=== PATIENT | male | born 1950 | race Hispanic/Latino ===

== ENCOUNTER → 2018-06-15 | Day surgery (SDC) | payer MEDICARE ==
[2018-06-04 10:16] LABS: BASOPHILS % 0.2 % (0.0-1.0); EOSINOPHILS # (AUTO) 0.8 (0.0-0.4); EOSINOPHILS % 8.6 % (0.0-6.0); HEMOGLOBIN 13.2 g/dL (14.0-18.0); LYMPHOCYTES # (AUTO) 1.9 (1.0-3.2); LYMPHOCYTES % 21.1 % (18.0-39.1); MEAN CORPUSCULAR HEMOGLOBIN 29.9 pg (28-32); MEAN CORPUSCULAR VOLUME 90.7 fL (81-99); MONOCYTES # (AUTO) 0.8 (0.2-0.8); MONOCYTES % 9.2 % (4.4-11.3); NEUTROPHILS # (AUTO) 5.3 (2.1-6.9); NEUTROPHILS % 60.4 % (38.7-80.0); PLATELET COUNT 248 x10e3/uL (140-360); RED BLOOD COUNT 4.41 x10e6/uL (4.3-5.7); RED CELL DISTRIBUTION WIDTH 13.3 % (11.7-14.4)
[~2018-06-15] MED LIST: ACTOPLUS MET 11 EAC1 PO; AMARYL2 MG PO; ASPIRIN81 MG PO; ATORVASTATIN CA80 MG PO; CALCIUM MAG ZINC; CEPHALEXIN500 MG PO; FENTANYL CITRATE/PF 100MCG/2 ML INJ ONE; HYDROCHLOROTH12.5 MG PO; HYOSCYAMINE SULFATE 0.5 MG/ML INJ ONE; KETAMINE HCL INJ 50 MG/ML 10 ML VIAL ONE; LEVOTHYROXINE125 MCG PO; LIPITOR10 MG PO; LISINOPRIL10 MG PO; MAGNESIUM250 MG PO; MEGA MEN PO; MELOXICAM7.5 MG PO; METFORMIN HCL500 MG PO; MIDAZOLAM HCL 2 MG/2 ML VIAL ONE; MONTELUKAST SOD10 MG PO; NAPROXEN250 MG PO; NORVASC5 MG PO; PANTOPRAZOLE SO40 MG PO; PIOGLITAZONE HC45 MG PO; PROPOFOL IV EMULSION 10 MG/ML 50 ML VIAL ONE; SODIUM BICARBO650 MG PO; VICTOZA 2-0.6 MG/0.1 SQ; VIT B12 PO; VITAMIN D35000 UNI1 PO
[2018-06-15 13:07] VITALS: BP 122/74
--- NOTE | 2018-06-15 13:55 | Operative Report ---
DATE OF PROCEDURE: June 15, 2018 REFERRING PHYSICIAN: Dr. Yehuda Rushing. PROCEDURES PERFORMED 1. Esophagogastroduodenoscopy with biopsies and esophageal dilatation. 2. Colonoscopy. INDICATIONS FOR EGD: Dysphagia to solids. INDICATIONS FOR COLONOSCOPY: Surveillance colonoscopy, personal history of colon polyps. MEDICATION: Patient was done under MAC. Please see anesthesiologist's note. PROCEDURE: With patient in left lateral decubitus position, a flexible fiberoptic Olympus gastroscope was introduced into the esophagus under direct visualization without any difficulty. There was a minute tongue of velvety red mucosa noted to extend proximally from the GE junction that was biopsied to rule out Aparicio's. Esophagus was then dilated to size 52-Upper Sorbian Rae. The scope was then advanced with ease into the stomach traversing a small sliding hiatal hernia. Mucosa overlying the antrum and the body revealed some patchy erythema and low-grade edema and biopsies were obtained and sent to stain for H. pylori. The pylorus was of normal contour and shape and was intubated with ease and the scope was advanced all the way to the 2nd portion of the duodenum. The mucosa overlying the proximal 2nd portion and the duodenal bulb appeared to be within normal limits. The scope was then withdrawn back into the stomach and retroflexed, and mucosa overlying the fundus and the cardia appeared to be within normal limits. The scope was then straightened out and was subsequently withdrawn. Patient tolerated the procedure well. IMPRESSION 1. Rule out Aparicio's esophagus. 2. Esophagus dilated to size 52-Upper Sorbian Rae. 3. Small sliding hiatal hernia. 4. Gastritis, biopsied. Biopsies sent to stain for Helicobacter pylori. 5. Previously described multiple duodenal ulcers on previous esophagogastroduodenoscopy appeared to have resolved. PLAN: Follow up histology. Continue Protonix 40 mg 1 p.o. q.a.m. a.c. Patient was then turned around and after adequate lubrication of the anal canal, a flexible fiberoptic Olympus colonoscope was inserted into the rectum with ease and advanced all the way to the cecum. Prep was fair, but somewhat suboptimal with some retained stools in the colon. Other than for andino diverticulosis, the colon grossly appeared to be within normal limits. The scope was then retroflexed into the distal rectum and small internal hemorrhoids were noted, none of which was actively bleeding. The scope was then straightened out and was subsequently withdrawn. Patient tolerated the procedure well. IMPRESSION 1. Andino diverticulosis. 2. Suboptimal prep. 3. Internal hemorrhoids, none actively bleeding. PLAN: Initiate high-fiber low-fat diet. Initiate high-fiber supplement. Patient might benefit from a followup colonoscopy in 3 to 5 years. Job#: [id number] AKU cc:YEHUDA RUSHING MD
--- OUTSIDE RECORDS SUMMARY | 2018-06-17 10:54 | XMS REPORT | Continuity of Care Document ---
Author Author [facility] Interface Address Unknown Phone Unavailable Problems Problem Status Onset Date Classification Date Reported Comments Source M25.561 Active 06/02/2016 [facility] Medications Medication Details Route Status Patient Instructions Ordering Provider Order Date Source Allergies, Adverse Reactions, Alerts Substance Category Reaction Severity Reaction type Status Date Reported Comments Source Immunizations Immunization Date Given Site Status Last Updated Comments Source Results Order Name Results Value Reference Range Date Interpretation Comments Source Knee 3 Views Bilateral DX Knee 3 Views Bilateral DX Bilateral knees 3 views: The bone density is decreased. There is narrowing of the medial tibiofemoral compartments of both knees, with sclerosis of the articular surfaces of the right knee. The other joint spaces appear normal in width with smooth articular surfaces. Chondrocalcinosis of the menisci is noted. The soft tissues are otherwise unremarkable. IMPRESSION: Degenerative changes without acute radiographic abnormalities of the knees. [id number] 06/02/2016 - - Read by: Jimmy Swanson MD Dictated Date/time: 06/02/16 11:46 Electronically Signed by: Jimmy Swanson MD 06/02/16 11:48 FINAL REPORT [facility] Vital Signs Vital Sign Value Date Comments Source Encounters Location Location Details Encounter Type Encounter Number Reason For Visit Attending Provider ADM Date DC Date Status Source [facility] Outpatient [id number] Batsheva Molina 06/02/2016 06/03/2016 [facility] Procedures Procedure Code Date Perfomer Comments Source
--- OUTSIDE RECORDS SUMMARY | 2018-06-17 10:54 | XMS REPORT ---
Author Author [facility] Address Unknown Phone Unavailable Care Team Providers Care Stuntman Name Role Phone STANLEY CASE Unavailable Unavailable Problems This patient has no known problems. Allergies, Adverse Reactions, Alerts This patient has no known allergies or adverse reactions. Medications This patient has no known medications. Results Test Description Test Time Test Comments Text Results Atomic Results Result Comments US RENAL RETROPERITONEAL COMP [place] [address] Patient Name: IRMA PINEDA MR #: [id number] : 1950 Age/Sex: 66/M Req #: [id number] Adm Physician: STANLEY CASE MD Ordered by: STANLEY CASE MD Report #: [id number] Location: [facility] Room/Bed: [place] [address] Procedure: [id number] US/US RENAL RETROPERITONEAL COMP Exam Date: 06/07/17 Exam Time: 1558 REPORT STATUS: Signed PROCEDURE: US RETROPERITONEAL ( KIDNEY ). COMPARISON: Abdominal CT 06/06/2017 INDICATIONS: ARF TECHNIQUE: García-scale and color sonographic images of the bilateral kidneys and bladder where obtained in transverse and longitudinal planes. FINDINGS: Limited exam secondary to body habitus and overlying bowel gas. RIGHT KIDNEY: 10.1 x 6.6 x 4.3 cm, cortex 1.8 cm Cysts: None Solid masses: None Stones: None Hydronephrosis: None Echogenicity: Normal LEFT KIDNEY: 9.9 x 6.3 x 5.9 cm, cortex 1.8 cm Cysts: None Solid masses: None Stones: None Hydronephrosis: None Echogenicity: Slightly increased Bladder: Unremarkable. Right ureteral jet visualized. CONCLUSION: 1. No hydronephrosis. 2. Slightly increased left renal echogenicity may reflect medical renal disease. Dictated by: Garrison Maher M.D. on 06/07/2017 at 17:29 Electronically approved by: Garrison Maher M.D. on 06/07/2017 at 17:29 Dictated By: GARRISON MAHER MD 28 Transcribed By: MECHELLE on 06/07/171728 COPY TO: STANLEY CASE MD CT CHEST WO [place] [address] Patient Name: IRMA PINEDA MR #: [id number] : 1950 Age/Sex: 66/M Req #: [id number] Adm Physician: Ordered by: JOSE RIVERS DATA EXAMINATION CLERK Report #: [id number] Location: ER Room/Bed: Procedure: [id number] CT/CT CHEST WO Exam Date: 06/06/17 Exam Time: 1400 REPORT STATUS: Signed PROCEDURE: CT CHEST WITHOUT CONTRAST CT scan of the chest WITHOUT intravenous contrast, using standard protocol. TECHNIQUE: The chest was scanned utilizing a multidetector helical scanner from the apex to the level of the adrenal glands. No IV contrast was administered per physician's request. Coronal and sagittal multiplanar reformations were obtained. COMPARISON: Patients [facility], , CHEST 2 VIEWS, 06/06/2017, 15:08. INDICATIONS: LUNG MASS. ABDOMINAL PAIN FINDINGS: Lines/tubes: None. Lungs and Airways: Linear scarring and associated calcification in the lateral right middle lobe (series 4, image 64). No pulmonary nodules, masses, or consolidation. No other opacities. Airways are clear, without endobronchial lesions. Pleura: No effusion, or pneumothorax. Heart and mediastinum: The heart is unremarkable. Heart size is normal. No pericardial effusion. Aorta is not aneurysmal. Main pulmonary artery is normal in caliber, measuring 2.5 cm. Atherosclerotic calcification of the coronary arteries and thoracic aorta, predominantly at the arch. Tortuosity of the right brachiocephalic artery and left subclavian artery, which correspond to the abnormalities seen on recent chest x-ray. Lymph nodes: No mediastinal, hilar, or axillary adenopathy. Left hilar calcified lymph nodes. Abdomen: Please see CT abdomen and pelvis performed same date for further detail. Bones: No acute bony abnormalities. Degenerative disc changes in the thoracic spine. No lytic lesions. Soft tissues are unremarkable. IMPRESSION: 1. Tortuosity of right brachiocephalic and left subclavian arteries, which correspond to the abnormality seen on recent chest x-ray. No pulmonary or mediastinal masses identified. 2. Left hilar calcified lymph nodes and linear scarring and calcification in the lateral right middle lobe, likely the sequela of prior granulomatous disease. Oskar Goodrich M.D. Dictated by: Oskar Goodrich M.D. on 06/06/2017 at 15:16 Electronically approved by: Oskar Goodrich M.D. on 06/06/2017 at 15:16 Dictated By: OSKAR GOODRICH MD 1516 Transcribed By: MECHELLE on 06/06/17 1516 COPY TO: JOSE RIVERS NP CT ABDOMEN/PELVIS [place] [address] Patient Name: IRMA PINEDA MR #: [id number] : 1950 Age/Sex: 66/M Req #: [id number] Adm Physician: Ordered by: JOSE RIVERS NP Report #: [id number] Location: ER Room/Bed: Procedure: [id number] CT/CT ABDOMEN/PELVIS WO Exam Date: 06/06/17 Exam Time: 1400 REPORT STATUS: Signed PROCEDURE: CT ABDOMEN AND PELVIS WITHOUT CONTRAST TECHNIQUE: The abdomen and pelvis were scanned utilizing a multidetector helical scanner from the diaphragm to the lesser trochanter after the oral administration of water. No IV contrast was administered per physician's request. Coronal and sagittal multiplanar reformations were obtained. COMPARISON: None. INDICATIONS: Suspected LUNG MASS. ABDOMINAL PAIN FINDINGS: ABSENCE OF INTRAVENOUS CONTRAST DECREASES SENSITIVITY FOR DETECTION OF FOCAL LESIONS AND VASCULAR PATHOLOGY. LOWER THORAX: Please see chest CT performed same date for further detail. HEPATOBILIARY: 3 mm calcified granuloma in the left hepatic lobe (series 2, image 52). No other focal lesions. No biliary ductal dilation. Gallbladder is unremarkable. SPLEEN: No splenomegaly. PANCREAS: No focal masses or ductal dilatation. ADRENALS: No adrenal nodules. KIDNEYS/URETERS: No hydronephrosis, stones, or solid mass lesions. PELVIC ORGANS/BLADDER: Unremarkable. PERITONEUM / RETROPERITONEUM: No free air or fluid. LYMPH NODES: No lymphadenopathy. VESSELS: Atherosclerotic calcification of the infrarenal abdominal aorta and proximal iliac vessels. GI TRACT: No bowel dilation or evidence of obstruction. No pericolonic inflammatory changes. Scattered diverticula in the descending and sigmoid colon, without diverticulitis. BONES AND SOFT TISSUES: No acute bony abnormalities. Multilevel degenerative disc changes in the lower thoracic and lumbosacral spine, worse at L4-L5, and L5-S1. Facet hypertrophy. L5-S1. Soft tissues are unremarkable. IMPRESSION: 1. No acute abdominopelvic abnormalities in this noncontrast exam. 2. Descending and sigmoid colon diverticulosis, without diverticulitis. Oskar Goodrich M.D. Dictated by: Oskar Goodrich M.D. on 06/06/2017 at 15:20 Electronically approved by: Oskar Goodrich M.D. on 06/06/2017 at 15:20 Dictated By: OSKAR GOODRICH MD 1520 Transcribed By: MECHELLE on 06/06/17 1520 COPY TO: JOSE RIVERS NP CHEST 2 VIEWS [place] [address] Patient Name: IRMA PINEDA MR #: [id number] : 1950 Age/Sex: 66/M Req #: [id number] Adm Physician: Ordered by: JOSE RIVERS NP Report #: [id number] Location: ER Room/Bed: Procedure: [id number] DX/CHEST 2 VIEWS Exam Date: 06/06/17 Exam Time: 1110 REPORT STATUS: Signed PROCEDURE: X-RAY CHEST, TWO VIEWS COMPARISON: None. INDICATIONS: CHEST PRESSURE, ABDOMEN PAIN FINDINGS: LUNGS: No consolidations or edema. PLEURA: No effusions or pneumothorax. HEART T MEDIASTINUM: The heart is within normal size-limits. There is fullness in the right paratracheal region and the anterior mediastinum. While this may be related to vascular tortuosity or substernal thyroid, a mass cannot be excluded. CT scan of the chest with contrast is suggested. BONES T SOFT TISSUES: No acute findings. CONCLUSION: 1. No acute thoracic abnormality. 2. Prominent anterior superior mediastinum as described above. Angel Devine D.O. Dictated by: Angel Devine D.O. on 06/06/2017 at 11:47 Electronically approved by: Angel Devine D.O. on 06/06/2017 at 11:47 Dictated By: ANGEL DEVINE DO 1147 Transcribed By: MECHELLE on 06/06/17 1147 COPY TO: JOSE RIVERS NP
== END | disposition home or self-care (01) ==
LOC: OR 08:16
PROVIDERS: ATTEND Internal Medicine Gastroenterology
DX: K21.0 Gastro-esophageal reflux disease with esophagitis (principal); K29.70 Gastritis, unspecified, without bleeding; K44.9 Diaphragmatic hernia without obstruction or gangrene; K57.30 Diverticulosis of large intestine without perforation or abscess without bleeding; K59.00 Constipation, unspecified; K64.8 Other hemorrhoids; G47.33 Obstructive sleep apnea (adult) (pediatric); I10 Essential (primary) hypertension; E11.9 Type 2 diabetes mellitus without complications; E78.00 Pure hypercholesterolemia, unspecified; Z01.810 Encounter for preprocedural cardiovascular examination; Z01.812 Encounter for preprocedural laboratory examination; Z79.82 Long term (current) use of aspirin; Z79.84 Long term (current) use of oral hypoglycemic drugs; Z68.41 Body mass index [BMI] 40.0-44.9, adult
CPT/HCPCS: 36415 ×2; 43239; 43450; 45378; 82948; 85025; 88305; 88312; 93005; J1980; J2250